=== PATIENT | male | born 1960 | race African-American/Black ===

== ENCOUNTER 2024-01-27 19:20 | Emergency (ER) | payer OTHER ==
[~2024-01-27] VITALS: Ht 177.8 cm; Wt 80.0 kg
[~2024-01-27 19:20] MED LIST: AMLO2.5T45 PO; ASPI-1406 PO; ATOR10TA PO; CLOP-31 PO
[2024-01-27 19:25] VITALS: TEMP 98.2; O2SAT 97
[2024-01-27 20:18] LABS: HEMATOCRIT. 40.9 % (42.0-52.0); HEMOGLOBIN. 14.3 g/dL (14.0-18.0); MEAN CORPUSCULAR HEMOGLOBIN 33.8 pg (28.0-32.0); MEAN CORPUSCULAR HGB CONC 34.9 g/dL (31.0-37.0); MEAN CORPUSCULAR VOLUME 96.9 fL (80.0-94.0); MEAN PLATELET VOLUME 7.6 fl (7.4-10.4); PLATELET 159 x1000/uL (130-400); RED BLOOD CELL COUNT 4.23 mill/uL (4.7-6.1); RED CELL DISTRIBUTION WIDTH 12.7 % (11.6-14.6); WHITE BLOOD COUNT 3.9 x1000/uL (4.5-11.0)
[2024-01-27 20:24] LABS: CHLORIDE 107 mEq/L (98-107); POTASSIUM 4.2 mEq/L (3.5-5.1); SODIUM 137 mEq/L (136-145)
[2024-01-27 20:25] LABS: CALCIUM 9.3 mg/dL (8.7-10.4); CARBON DIOXIDE 26 mEq/L (21-32)
[2024-01-27 20:30] LABS: CREATININE 1.2 mg/dL (0.6-1.3); GLUCOSE 90 mg/dL (70-105); UREA NITROGEN BLOOD 15 mg/dL (9-23)
[2024-01-27 20:31] LABS: DIFFERENTIAL COMMENT 1; TROPONIN I HIGH SENSITIVITY 6 ng/L (3.0-53)
[2024-01-27] MEDS: MORPHINE SULFATE 4 MG/ML INJ (FOR IV/IM USE) IV ONE (20:42)
[2024-01-27] MEDS: ONDANSETRON HCL 4MG/2ML INJ IV ONE (20:42)
[2024-01-27 21:12] LABS: ATYPICAL LYMPHOCYTES 5; PLATELET ESTIMATE NORMAL
[2024-01-27 22:57] LABS: TROPONIN I HIGH SENSITIVITY 6 ng/L (3.0-53)
[2024-01-28 01:08] VITALS: BP 120/76; PULSE 54; RESP 18; O2SAT 99
== END 2024-01-28 01:38 | disposition short-term general hospital (02) ==
LOC: ER 19:20 → CANBEDREQ 01-28 01:42
DX: R07.89 Other chest pain (principal); R06.02 Shortness of breath; I20.0 Unstable angina; R00.1 Bradycardia, unspecified; I25.2 Old myocardial infarction; F41.9 Anxiety disorder, unspecified; I10 Essential (primary) hypertension; Z79.899 Other long term (current) drug therapy; Z79.82 Long term (current) use of aspirin; Z79.02 Long term (current) use of antithrombotics/antiplatelets; Z95.1 Presence of aortocoronary bypass graft; Z95.5 Presence of coronary angioplasty implant and graft
CPT/HCPCS: 80048; 83880; 85025; 84484; 36415; 71045; 93005; 96374; 96375; 99285; J2405; J2270; Z7610 ×2